=== PATIENT | female | born 1930 | race Caucasian/White ===

== ENCOUNTER 2016-12-13 15:58 | Inpatient (IN) | payer OTHER, MEDICARE ==
[~2016-12-13] VITALS: Ht 152.4 cm; Wt 69.1 kg
[~2016-12-13 15:58] MED LIST: AMITIZA8 MC1 PO; CITRATE OF MAG300 ML PO; EXELON1 EACH TOP; FUROSEMIDE20 M1 PO; GOLYTELY PACKE1 EACH PO; MIRTAZAPINE7.5 M1 PO; PROPRANOLOL HCL20 M1 PO; SENSIPAR30 M1 PO; VITAMIN D32000 UNIT PO
--- NOTE | 2016-12-13 16:05 | NUR ---
PT TO ED WITH SON AND DAUGHTER IN LAW FOR LETHARGY, SWOLLEN LEGS AND DARK STOOLS. PT WAS SENT IN BY DR VÁZQUEZ. PT HAS DEMENTIA. FAMILY STATES PT HAS BEEN MORE TIRED AND WEAK LATELY. PT HAS HOME HEALTH AID WHO STATED TODAY PT HAD DIARRHEA WITH ? BLOOD IN IT. PT DENIES ANY PAIN.
--- NOTE | 2016-12-13 16:39 | ED AMS/SEIZURE/WEAK/DIZZY ---
History of Present Illness General Chief Complaint: General Adult Stated Complaint: SENT IN BY MD VÁZQUEZ FOR SWOLLEN LEGS/DARK STOOLS Source: patient, family, old records Exam Limitations: dementia Vital Signs & Intake/Output Vital Signs & Intake/Output Vital Signs Date Time Temp Pulse Resp B/P Pulse O2 O2 Flow FiO2 Ox Delivery Rate 12/15 2219 97.6 134 22 132/69 92 Room Air 12/14 2135 99.1 12/14 2018 99.4 12/14 1452 98.5 69 20 113/66 95 Room Air 12/14 0800 Room Air 12/14 0640 97.8 67 20 124/70 94 ED Intake and Output 12/15 0000 12/14 1200 Intake Total 1000 450 Output Total 1150 1375 Balance -150 -925 Intake, IV 400 400 Intake, Oral 600 50 Number 0 Bowel Movements Output, Urine 1150 1375 Patient 152 lb Weight Allergies Coded Allergies: NO KNOWN ALLERGIES (10/29/12) Triage Note: PT TO ED WITH SON AND DAUGHTER IN LAW FOR LETHARGY, SWOLLEN LEGS AND DARK STOOLS. PT WAS SENT IN BY DR VÁZQUEZ. PT HAS DEMENTIA. FAMILY STATES PT HAS BEEN MORE TIRED AND WEAK LATELY. PT HAS HOME HEALTH AID WHO STATED TODAY PT HAD DIARRHEA WITH ? BLOOD IN IT. PT DENIES ANY PAIN. Triage Nurses Notes Reviewed? yes Onset: Gradual Duration: week(s): (2.5), constant Timing: recent history Injury Environment: home Severity: moderate Severity Numbers: 8 No Modifying Factors: none Associated Symptoms: WEAKNESS, ANOREXIA HPI: 85 Year old female history of dementia hypertension presents brought in with her family whom she lives with states over the past 2-1/2 weeks she's had progressively worsening lethargy and weakness, shortness of breath and bilateral leg swelling. Family states that she was seen by her primary care physician earlier this week at which time she had outpatient blood work and urinalysis performed. They state that there was no urinary tract infection however white blood cell count was elevated. The patient was recently adjusted to take Lasix 10 mg once a day every day. The patient has a history of dementia and offers no complaints on arrival. The family states that today and aide while changing her noted that her stool was dark. She was recently started on iron. There's been no nausea or vomiting however family reports poor appetite and malodorous urine (HANROSALVA COLE) Reconcile Medications Cholecalciferol (Vitamin D3) (Vitamin D3) 2,000 UNIT CAPSULE 1 CAP PO DAILY SUPPLEMENT (Reported) Cinacalcet HCl (Sensipar) 30 MG TABLET 1 TAB PO DAILY THYROID (Reported) Ferrous Sulfate (IRON) 325 MG (65 MG IRON) TABLET 1 TAB PO TID SUPPLEMENT ( Reported) Furosemide 20 MG TABLET 0.5 TAB PO DAILY DIURETIC (Reported) [facility] ([place] Simplus Solution) 105 ML SOLUTION 1 DROP OS BID LEFT EYE (Reported) Lubiprostone (Amitiza) 24 MCG CAPSULE 1 CAP PO BID CONSTIPATION (Reported) Rivastigmine (Exelon) 4.6 MG/24 HOUR PATCH.TD24 1 PAT TOP DAILY Dementia ( Reported) Tobramycin/Dexamethasone (Tobradex Eye Ointment) 0.3 %-0.1 % OINT...G. 1 LUCINDA OS BID LEFT EYE (Reported) (TAMARA MAYA,STEVE Paniagua) Past History Travel History Traveled to [place] past 21 day No Medical History Any Pertinent Medical History? see below for history Neurological: Alzheimer's disease, dementia EENT: NONE Cardiovascular: hypertension, hyperlipidemia Respiratory: NONE Gastrointestinal: diverticulosis Hepatic: NONE Renal: NONE Musculoskeletal: NONE Psychiatric: NONE Endocrine: NONE Blood Disorders: ITP NIGHT SHIFT/Reproductive: NONE Surgical History Surgical History: non-contributory, splenectomy Psychosocial History Who do you live with Son What is your primary language Uruguayan Tobacco Use: Quit >30 days ago ETOH Use: denies use Illicit Drug Use: denies illicit drug use Family History Hx Contributory? No (ROSALVA BENSON) Review of Systems Review of Systems Constitutional: Reports: see HPI. All Other Systems: Reviewed and Negative Comments Review of systems: See HPI, All other systems negative. Constitutional, no chills no fever, malaise HEENT: No visual changes no sore throat no congestion Cardiovascular: No chest pain , no palpitation , no orthopnea ankle swelling Skin, no rashes, no change in skin Respiratory: No dyspnea no cough no sputum no hemoptysis GI: No nausea no vomiting, no diarrhea : No dysuria No hematuria, no frequency Muscle skeletal: No joint pain, no joint swelling, no back pain, no neck pain, Neurologic: No numbness no headache Psych: No stress Heme/endocrine: No bruising no bleeding Immunology: No lymphadenopathy (ROSALVA BENSON) Physical Exam Physical Exam General Appearance: well developed/nourished, alert, awake Comments: Well-developed well-nourished person in no acute distress HEENT: Normal EENT exam; PERRL, EOMI, HEAD is atraumatic. moist mucous membranes. Neck: Supple, normal range of motion Back: Nontender, Full range of motion Cardiovascular: Regular rate and rhythms no murmurs rubs Respiratory: No respiratory distress. Patient speaking in full complete sentences. Breath sounds clear to auscultation bilaterally: NO W/R/R Abdomen: Soft, nontender nondistended, no appreciable organomegaly. Normal bowel sounds. No rebound/guarding Rectal: Nontender. Black stool, Heme negative stool. No mass/hemorrhoid, no fissure. Extremity: 3+ pitting b/l le edema, full range of motion of extremities Neuro: Alert oriented x0 BASELINE, motor sensory normal, There were no obvious focal neurologic abnormalities. Skin: No appreciable rash on exposed skin, skin is warm and dry. Psych: Mood and affect is normal, memory and judgment is normal. Core Measures ACS in differential dx? Yes CVA/TIA Diagnosis: No Severe Sepsis Present: No Septic Shock Present: No (ROSALVA BENSON) Progress Differential Diagnosis: arrythmia, anemia, CVA/stroke, dehydration, electrolyte imbalance, GI bleed, hypoglycemia, pneumonia, sepsis, UTI/pyelo, MALIGNANCY Plan of Care: Orders Procedure Date/time Status Device(s) 12/[address] HEAD W&WO IV CONTRAST 12/[address] ABD & PELVIS W/ & W/O IV CO 12/15 UNK Active Suazo, Insertion/Removal/Asses 12/14 195 Active Skin/Pressure Ulcer Assess (Sk 12/14 193 Active Suazo, Insertion/Removal/Asses 12/14 1900 Active Current Medications Sig/Brittney Start time Last Medication Dose Stop Time Status Admin Ramelteon 8 MG ONCE ONE 12/14 2100 CAN (Rozerem) 12/14 210 Ferrous Sulfate 325 MG TID 12/14 1000 AC (Feosol) Polyethylene Glycol 17 GM DAILY PRN 12/14 0115 AC (Miralax) Acetaminophen 325 MG Q6P PRN 12/13 2330 AC (Tylenol) Ibuprofen 400 MG Q6P PRN 12/13 2330 AC (Motrin) Laboratory Tests 12/14/16 0614: Anion Gap 10, Estimated GFR > 60, BUN/Creatinine Ratio 17.1, CBC w Diff NO MAN DIFF REQ, RBC 3.77 L, MCV 88.0, MCH 28.7, RDW 15.8 H, MPV 9.2, Gran % 81.1 H, Lymphocytes % 11.3 L, Monocytes % 7.1, Eosinophils % 0.4, Basophils % 0.1, Absolute Granulocytes 16.8 H, Absolute Lymphocytes 2.3, Absolute Monocytes 1.5 H, Absolute Eosinophils 0.1, Absolute Basophils 0, PUBS MCHC 32.7 L Labs ordered old records reviewed patient denies any complaints at this time case discussed with Dr. MOCTEZUMA Discussed with the patient's family at leave her x-ray findings need for CAT scan and lab results and need for admission which they're in agreement with discussed with Dr. Snell covering for Dr. VÁZQUEZ WILL ADMIT (OLVIN GREEN,ROSALVA) Diagnostic Imaging: Viewed by Me: Radiology Read. Discussed w/RAD: Radiology Read. Radiology Impression: PATIENT: REID MCCAIN PRESENT AGE: 85 PATIENT ACCOUNT NO: [id number] : 32 LOCATION: [facility] ORDERING PHYSICIAN: ROSALVA GREEN SERVICE DATE: 12/13/16 EXAM TYPE: RAD - XRY- PORTABLE CHEST XRAY EXAMINATION: XR PORTABLE CHEST CLINICAL INFORMATION: Dyspnea , leg swelling. COMPARISON: Chest radiograph 10/17/2009 and 10/28/2011. TECHNIQUE: Portable portable AP 80 degrees upright view of the chest was obtained. FINDINGS : A left hilar mass is identified with patchy opacity in the left upper lobe. Increased reticular markings are seen at the periphery of the right upper lobe worse from prior. Chronic increased reticular markings are seen bilaterally. The heart is not enlarged. No acute osseous abnormalities are seen. IMPRESSION: Left hilar mass with left upper lobe opacity. Recommend CT chest with contrast for further evaluation to assess for underlying neoplasm. Differential diagnosis could include superimposed pneumonia. Additional increased interstitial markings are chronic with slight increase in subpleural markings in the right upper lobe since prior. This critical result was discussed with Rosalva Gibbs by telephone at 6:30 PM on 12/13/2016 and it was ascertained that the content and urgency of the report was understood at the time of direct communication. DICTATED BY: MARCOS JOYCE MD DATE/TIME DICTATED:12/13/161825 MANAGEMENT PROFESSIONALS:[employer] DATE/ TIME TRANSCRIBED:12/13/161825 CONFIDENTIAL, DO NOT COPY WITHOUT APPROPRIATE AUTHORIZATION. <Electronically signed in Other Vendor System> SIGNED BY: MARCOS JOYCE MD 12/13/161835, PATIENT: REID MCCAIN PRESENT AGE: 85 PATIENT ACCOUNT NO: [id number] : 32 LOCATION: [facility] ORDERING PHYSICIAN: ROSALVA GREEN SERVICE DATE: 12/13/16 EXAM TYPE: CAT - CT CHEST W IV CONTRAST EXAMINATION: CT CHEST WITH CONTRAST CLINICAL INFORMATION: Left lung mass. Evaluate for malignancy. COMPARISON: Portable chest x-ray 10/28/2011 and 12/13/2016. TECHNIQUE: Multidetector volumetric CT imaging of the chest was obtained after the administration of 94 mL of Optiray 320 intravenous contrast without immediate adverse reactions. Axial MIP volume rendering provided. Sagittal and coronal reformatted images were obtained. DLP: 145 mGy-cm FINDINGS: RESEARCH PHYSICIST: Seater Assembler views of the chest demonstrate a left suprahilar mass. LUNGS: Evaluation of the lung parenchyma is notable for a large left suprahilar mass with contiguous extension and invasion of the mediastinum. This mass measures approximately 5.9 x 6.7 x 5.8 cm in transverse, AP and craniocaudal dimensions respectively (series 2, image 19). This mass exerts local mass effect upon the adjacent vasculature, notably the main pulmonary artery as well as the left pulmonary artery, without significant narrowing. There are subcentimeter nodular opacities within the bilateral lung bases, which could reflect impacted bronchioles versus subcentimeter pulmonary nodules. For instance, there is a 6 mm pulmonary nodule within the right lower lobe (series 602, image 60). A 6 mm nodule is also visualized along the periphery of the right upper lobe. A tubular density within the right lower lobe appears to correspond to a fluid or soft tissue filled bronchiole within the right lung base. There are mild bilateral centrilobular emphysematous changes, notably within the bilateral upper lobes. Also noted is subpleural reticular thickening, notably along the periphery of the bilateral upper lobes as well as the bilateral lower lobes. The central trachea appears to be grossly patent. MEDIASTINUM: As noted above, there is invasion of the mediastinum by a large left suprahilar mass. There is a prominent right hilar lymph node visualized measuring approximately 1.3 x 1.2 cm (series 2, image 19). There is an enhancing 0.9 x 1.0 cm subpleural nodule abutting the middle mediastinum (series 2, image 23). The heart is normal in size, without significant pericardial effusion. PLEURA: No pleural effusions or pneumothoraces. AXILLA: No significant axillary adenopathy. UPPER ABDOMEN: Evaluation of the upper abdomen is notable for ill- defined regions of heterogeneity within the hepatic dome as well as the left hepatic lobe, with a rounded ill-defined hypoattenuating lesion identified within the hepatic dome measuring 3.8 x 4.5 cm (series 2, image 42). There is diffuse thickening of the left adrenal gland. OSSEOUS STRUCTURES: No acute osseous abnormality. Kyphosis of the thoracic spine. Mild multilevel degenerative changes of the thoracic spine. IMPRESSION: 1. A large left suprahilar mass with associated invasion of the mediastinum. This mass, which measures approximately 5.9 x 6.7 x 5.8 cm in transverse, AP and craniocaudal dimensions respectively, exerts local mass effect upon the adjacent vasculature, notably the main pulmonary artery as well as the left pulmonary artery, without significant narrowing of the caliber of these vessels. 2. Multiple nodular opacities along the periphery of the right upper and right lower lobes, visualized measuring up to 6 mm within the right lower lobe. There is a tubular structure within the right lower lobe which could reflect fluid versus soft tissue within a dilated bronchiole. These pulmonary nodules are indeterminate but could reflect metastasis to the contralateral lung. 3. Diffuse heterogeneity within the left hepatic lobe as well as the hepatic dome, with an ill-defined rounded lesion visualized within the hepatic dome measuring approximately 3.8 x 4.5 cm. This is suspicious for liver metastasis. A nonemergent multiphase contrast-enhanced CT or MRI of the abdomen may be obtained for further evaluation. 4. Diffuse thickening of the left adrenal gland. This finding is indeterminate. Left adrenal gland metastasis cannot be excluded. This can also be further evaluated on CT or MRI of the abdomen. DICTATED BY: JUSTA CORBETT MD DATE/TIME DICTATED:12/13/162038 MANAGEMENT PROFESSIONALS:[employer]PH[employer] DATE/TIME TRANSCRIBED:12/13/162038 CONFIDENTIAL, DO NOT COPY WITHOUT APPROPRIATE AUTHORIZATION. <Electronically signed in Other Vendor System> SIGNED BY: JUSTA CORBETT MD 12/13/162114 Initial ED EKG: NORMAL SINUS AT 70, NONSPECIFIC st SEGMENT CHANGES NORMAL AXIS Prior EKG: unchanged (12/14/2015) (ROSALVA BENSON) Departure Departure Time of Disposition: 1952 Disposition: STILL A PATIENT Condition: Stable Clinical Impression Primary Impression: Lung mass Secondary Impressions: Hypocalcemia, Leg edema, Leukocytosis, Weakness Referrals: BEBE MAYA,LANETTE Dos Santos (PCP/Family) Departure Forms: Customer Survey General Discharge Information Admission Note Spoke With: DEE DEE MAYA,MARIELA Alaniz Documentation of Exam: Documentation of any treatments & extenuating circumstances including Concerns Regarding Discharge (functional status, medication knowledge or non-compliance, living conditions, etc.) that warrant an admission rather than observation: Trend labs IV diuresis, possible oncology, cardiology consult premature discharge to be medically harmful (ROSALVA BENSON) PA/MAGISTRATE Co-Sign Statement Statement: ED Attending supervision documentation- [] I saw and evaluated the patient. I have also reviewed all the pertinent lab results and diagnostic results. I agree with the findings and the plan of care as documented in the PA's/MAGISTRATE's documentation. [x] I have reviewed the ED Record and agree with the PA's/MAGISTRATE's documentation. [] Additions or exceptions (if any) to the PAs/MAGISTRATE's note and plan are summarized below: [] (TAMARA MAYA,STEVE Paniagua)
[2016-12-13] MEDS ORDERED: AMITIZA24 MC1 PO (16:49)
[2016-12-13] MEDS ORDERED: [UNRECOGNIZED DRUG - SUPPLY] OS (16:50)
[2016-12-13] MEDS ORDERED: TOBRADEX EYE O3.5 GM OS (16:51)
[2016-12-13] MEDS ORDERED: IRON325 M3 PO (16:52)
--- NOTE | 2016-12-13 17:25 | NUR ---
ACCOMPANIED NORMA BAH IN ROOM FOR GUIA EXAMINATION. PER NORMA BLACKWELL, [facility] NEGATIVE
--- NOTE | 2016-12-13 17:50 | NUR ---
IV ESTABLISHED. LABS DRAWN AND SENT (BLUE, SST X 2, LAV, SINHA, PINK). FAMILY AT BEDSIDE. PT CONFUSED, ALERT AND ORIENTED TO PERSON ONLY.
[2016-12-13 18:01] LABS: ABSOLUTE BASOPHIL COUNT 0 /CUMM (0.0-0.2); ABSOLUTE EOSINOPHIL COUNT 0.1 /CUMM (0.0-0.7); ABSOLUTE GRANULOCYTE CT 15.6 /CUMM (1.4-6.5); ABSOLUTE LYMPH COUNT 1.8 /CUMM (1.2-3.4); ABSOLUTE MONOCYTE COUNT 0.9 /CUMM (0.10-0.60); BASOPHIL % 0 % (0.0-2.0); EOSINOPHIL % 0.5 % (0-5); GRANULOCYTE % 84.6 % (42.2-75.2); HEMATOCRIT 32.5 % (37-47); MEAN CORPUSCULAR HGB 28.4 PG (27.0-31.0); MEAN CORPUSCULAR HGB CONC 32.5 G/DL (33.0-37.0); MEAN CORPUSCULAR VOLUME 87.6 FL (81.0-99.0); MEAN PLATELET VOLUME 8.6 FL (7.4-10.4); PLATELET COUNT 472 /CUMM (130-400); RBC DISTRIBUTION WIDTH 15.9 % (11.5-14.5); RED BLOOD CELL CT 3.71 /CUMM (4.20-5.40); WHITE BLOOD CELL COUNT 18.5 /CUMM (4.8-10.8)
--- NOTE | 2016-12-13 18:13 | NUR ---
PT BLOOD SENT TO THE LAB 2 [facility]
--- NOTE | 2016-12-13 18:36 | RADIOLOGY REPORT ---
EXAMINATION: XR PORTABLE CHEST CLINICAL INFORMATION: Dyspnea, leg swelling. COMPARISON: Chest radiograph 10/17/2009 and 10/28/2011. TECHNIQUE: Portable portable AP 80 degrees upright view of the chest was obtained. FINDINGS: A left hilar mass is identified with patchy opacity in the left upper lobe. Increased reticular markings are seen at the periphery of the right upper lobe worse from prior. Chronic increased reticular markings are seen bilaterally. The heart is not enlarged. No acute osseous abnormalities are seen. IMPRESSION: Left hilar mass with left upper lobe opacity. Recommend CT chest with contrast for further evaluation to assess for underlying neoplasm. Differential diagnosis could include superimposed pneumonia. Additional increased interstitial markings are chronic with slight increase in subpleural markings in the right upper lobe since prior. This critical result was discussed with oTd Gibbs by telephone at 6:30 PM on 12/13/2016 and it was ascertained that the content and urgency of the report was understood at the time of direct communication.
--- NOTE | 2016-12-13 19:47 | NUR ---
BLOOD WORK (CARRIZALES AND BLUE) REDRAWN AND SENT TO LAB. 1ST SET OF BLOOD CULTURES DRAWN AND SENT TO LAB
[2016-12-13 19:56] LABS: PT 13.1 SEC (9.4-12.5)
--- NOTE | 2016-12-13 20:00 | NUR ---
2ND SET OF BLOOD CULTURES DRAWN AND SENT TO LAB
--- NOTE | 2016-12-13 20:05 | NUR ---
PT TO CT VIA STRETCHER
--- NOTE | 2016-12-13 20:21 | NUR ---
pt to room 210 bed 1
--- NOTE | 2016-12-13 20:30 | NUR ---
INDWELLING CATH PLACED WITH YUAN HODGSON IN ROOM. PT TOLERATED WELL. 300ML CLEAR YELLOW URINE OUT. TRU CARE PROVIDED.
--- NOTE | 2016-12-13 20:30 | NUR ---
PT MEDICATED WITH LASIX 20MG IVP
--- NOTE | 2016-12-13 21:14 | NUR ---
ATTEMPTED TO CALL REPORT TO FLOOR
--- NOTE | 2016-12-13 21:15 | CT SCAN REPORT ---
EXAMINATION: CT CHEST WITH CONTRAST CLINICAL INFORMATION: Left lung mass. Evaluate for malignancy. COMPARISON: Portable chest x-ray 10/28/2011 and 12/13/2016. TECHNIQUE: Multidetector volumetric CT imaging of the chest was obtained after the administration of 94 mL of Optiray 320 intravenous contrast without immediate adverse reactions. Axial MIP volume rendering provided. Sagittal and coronal reformatted images were obtained. DLP: 145 mGy-cm FINDINGS: CHIEF OF SERVICE: Photovoltaic Testing Technician views of the chest demonstrate a left suprahilar mass. LUNGS: Evaluation of the lung parenchyma is notable for a large left suprahilar mass with contiguous extension and invasion of the mediastinum. This mass measures approximately 5.9 x 6.7 x 5.8 cm in transverse, AP and craniocaudal dimensions respectively (series 2, image 19). This mass exerts local mass effect upon the adjacent vasculature, notably the main pulmonary artery as well as the left pulmonary artery, without significant narrowing. There are subcentimeter nodular opacities within the bilateral lung bases, which could reflect impacted bronchioles versus subcentimeter pulmonary nodules. For instance, there is a 6 mm pulmonary nodule within the right lower lobe (series 602, image 60). A 6 mm nodule is also visualized along the periphery of the right upper lobe. A tubular density within the right lower lobe appears to correspond to a fluid or soft tissue filled bronchiole within the right lung base. There are mild bilateral centrilobular emphysematous changes, notably within the bilateral upper lobes. Also noted is subpleural reticular thickening, notably along the periphery of the bilateral upper lobes as well as the bilateral lower lobes. The central trachea appears to be grossly patent. MEDIASTINUM: As noted above, there is invasion of the mediastinum by a large left suprahilar mass. There is a prominent right hilar lymph node visualized measuring approximately 1.3 x 1.2 cm (series 2, image 19). There is an enhancing 0.9 x 1.0 cm subpleural nodule abutting the middle mediastinum (series 2, image 23). The heart is normal in size, without significant pericardial effusion. PLEURA: No pleural effusions or pneumothoraces. AXILLA: No significant axillary adenopathy. UPPER ABDOMEN: Evaluation of the upper abdomen is notable for ill-defined regions of heterogeneity within the hepatic dome as well as the left hepatic lobe, with a rounded ill-defined hypoattenuating lesion identified within the hepatic dome measuring 3.8 x 4.5 cm (series 2, image 42). There is diffuse thickening of the left adrenal gland. OSSEOUS STRUCTURES: No acute osseous abnormality. Kyphosis of the thoracic spine. Mild multilevel degenerative changes of the thoracic spine. IMPRESSION: 1. A large left suprahilar mass with associated invasion of the mediastinum. This mass, which measures approximately 5.9 x 6.7 x 5.8 cm in transverse, AP and craniocaudal dimensions respectively, exerts local mass effect upon the adjacent vasculature, notably the main pulmonary artery as well as the left pulmonary artery, without significant narrowing of the caliber of these vessels. 2. Multiple nodular opacities along the periphery of the right upper and right lower lobes, visualized measuring up to 6 mm within the right lower lobe. There is a tubular structure within the right lower lobe which could reflect fluid versus soft tissue within a dilated bronchiole. These pulmonary nodules are indeterminate but could reflect metastasis to the contralateral lung. 3. Diffuse heterogeneity within the left hepatic lobe as well as the hepatic dome, with an ill-defined rounded lesion visualized within the hepatic dome measuring approximately 3.8 x 4.5 cm. This is suspicious for liver metastasis. A nonemergent multiphase contrast-enhanced CT or MRI of the abdomen may be obtained for further evaluation. 4. Diffuse thickening of the left adrenal gland. This finding is indeterminate. Left adrenal gland metastasis cannot be excluded. This can also be further evaluated on CT or MRI of the abdomen.
--- NOTE | 2016-12-13 21:31 | NUR ---
REPORT CALLED TO BORIS OWENS. DISTRIBUTION CALLED FOR TRANSPORT
--- NOTE | 2016-12-13 21:53 | NUR ---
GONCALVES EMPTIED OF 650ML CLEAR LIGHT YELLOW URINE. PT ANXIOUS AND AGITATED AT THIS TIME, HOUSE STAFF PRESENT AND AWARE. FAMILY ALSO PRESENT IN ATTEMPTS TO DEESCALATE. TRANSPORTED TO FLOOR WITH HUMERA SOLIS X2 AND FAMILY.
--- NOTE | 2016-12-13 22:35 | History & Physical ---
PAUL MAYA,[facility] 12/13/16 2234: General Information and HPI MD Statement: I have seen and personally examined REID MCCAIN and documented this H&P. The patient is a 85 year old F who presented with a patient stated chief complaint of lower extremity swelling. Source of Information: family Exam Limitations: dementia History of Present Illness: This is a 85-year-old is a 85-year-old lady with a past medical history of hypertension, dementia, idiopathic thrombocytopenia purpura status post splenectomy, is sent to [place] ED by Dr. Lazaro for evaluation of increasing bilateral lower extremity edema. At baseline, patient has dementia and appeared disoriented during examination, therefore most of the history was obtained from family members (sons and in laws ). Family members report that patient was recently started on furosemide 10 mg (about 2 weeks ago) for her lower extremity swelling, by report that the swelling has progressively worsened. Early in the morning today, patient was reported to have had an episode for bowel movement with dark black stools. Patient was just started iron supplementation about 3 days ago and is normally has a bowel movement every other day. Patient also intermittently complains of mild abdominal pain, but does not experience any nausea, vomiting or diarrhea. Family members also report that the patient has had a decreased oral intake in the past 2 months, experienced a weight loss of about 10 pounds in the past 2 months, and has been found to be more demented with nightmares and possibly hallucinations (feelings of people are going to break into her house). Patient is not reported to have had any recent fevers, cough, infection, sick contacts, chest pain or palpitation, shortness of breath, dizziness, focal call neurological deficit, muscle or joint pains, or dysuria Allergies/Medications Allergies: Coded Allergies: NO KNOWN ALLERGIES (10/29/12) Past History Travel History Traveled to [place] past 21 day No Medical History Neurological: Alzheimer's disease, dementia EENT: NONE Cardiovascular: hypertension, hyperlipidemia Respiratory: NONE Gastrointestinal: diverticulosis Hepatic: NONE Renal: NONE Musculoskeletal: NONE Psychiatric: NONE Endocrine: NONE Blood Disorders: ITP 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 Exam & Diagnostic Data Last 24 Hrs of Vital Signs/I&O Vital Signs Date Time Temp Pulse Resp B/P Pulse O2 O2 Flow FiO2 Ox Delivery Rate 12/133 98.8 66 18 113/56 98 12/13 1950 Room Air 12/13 1600 97.8 71 20 104/70 96 Room Air Intake & Output 12/14 0800 12/14 0000 12/13 1600 Intake Total Output Total 650 Balance -650 Output, Urine 650 Patient 69.059 kg Weight Physical Exam General Appearance Alert, oriented to place. appears confused, cachetic Skin No Significant Lesion HEENT Atraumatic, PERRLA, EOMI Neck Supple, No JVD, No thryomegaly Lymphatic Cervical nl Cardiovascular Regular Rate, Normal S1, Normal S2 Lungs Clear to Auscultation, Normal Air Movement Abdomen Normal Bowel Sounds, Soft Neurological Normal Speech, Sensation Intact Extremities pitting edema b/l LE extremities Vascular Pulses Symmetrical Assessment/Plan Assessment: This is a 85-year-old lady with a significant history of dementia, hypertension, MVP, is sent in by her primary care physician for evaluation of increased bilateral lower extremity edema and dark stool. Patient was recently started on furosemide 10 mg lower extremity edema which seems to be worsening despite current intervention. Regarding dark black stools, this seems to have started 3 days after initiation of iron therapy. Assessment and plan #Lower extremity edema Patient does not have history of CHF or chronic venous insufficiency which account for the edema. The bilateral extremity edema possibly be from malignancy? Plan Continue furosemide 10 mg daily #Abnormal CT findings of lung mass Large left suprahilar mass with associated to invasion of the mediastinum. Large nodular opacity along the periphery of the right upper and right lower lobes. The findings a significant illness be contributory finding is suggestive of metastasis from the primary left lung mass. Is also diffuse heterogeneously of the liver and thickening of the left adrenal gland which also suggests metastasis. Patient has an extensive prior history of smoking and an extensive family history of lung malignancy. This findings were discussed with family members (Aneesh and Antony). Plan Will obtain CT head and CT abdomen and pelvis to assess possible metastases to other parts. Family meeting regarding goals of care Consider oncology consult after consultation with family tomorrow morning #Leukocytosis Patient is afebrile, urinalysis is unremarkable for UTI, chest x-ray unremarkable for any acute infection, therefore leukocytosis is less likely to be of infectious etiology. Plan Will trend CBC tomorrow morning #Hyponatremia (mild) Most likely hypovolemic hyponatremia. Plan Normal saline gentle hydration #Hypokalemia Most likely this in the setting of furosemide use. Status post 10 mEq replenishment Plan Will trend BEP #Acute delirium Patient became confused with agitation at the ED and on general med floor with attempts to pull IV lines. Soft upper extremity restraint was instituted and patient received IM Zyprexa to milligram once due to severe agitation. Plan Will avoid any delirium triggers Will assess further need for upper extremity restraints Encouraged family members to stay with patient orientation Will avoid delirium triggers such as constipation (aggressive bowel regimen) #History of dementia Continue Exelon patches As Ranked By This Provider Problem List: 1. Acute delirium 2. Leg edema 3. Leukocytosis 4. Lung mass Core Measures/Miscellaneous Acute Coronary Syndrome ACS Diagnosis: No Cerebrovascular Accident CVA/TIA Diagnosis: No Congestive Heart Failure CHF Diagnosis: No Venous Thromboembolism VTE Risk Factors: Age > 40 No [facility] VTE prophylaxis d/t: No contraindications No VTE Pharm Prophylaxis d/t: No contraindications VTE Diagnosis: No VTE Type: NONE VTE Confirmed by (Test): NONE Severe Sepsis Severe Sepsis Present: No Septic Shock Septic Shock Present: No Miscellaneous Documentation Attending Case Discussed With: DEE DEE MAYA,MARIELA Alaniz Primary Care Physician: LANETTE SPENCE MD Patient sees these Specialists . Level of Patient Care: General Medicine IHM BRAYAN MAYA 12/13/16 0022: General Information and HPI Allergies/Medications Home Med list Cholecalciferol (Vitamin D3) (Vitamin D3) 2,000 UNIT CAPSULE 1 CAP PO DAILY SUPPLEMENT (Reported) Cinacalcet HCl (Sensipar) 30 MG TABLET 1 TAB PO DAILY THYROID (Reported) Ferrous Sulfate (IRON) 325 MG (65 MG IRON) TABLET 1 TAB PO TID SUPPLEMENT ( Reported) Furosemide 20 MG TABLET 0.5 TAB PO DAILY DIURETIC (Reported) Hard Data Control Clerk Supervisor (Ironside Simplus Solution) 105 ML SOLUTION 1 DROP OS BID LEFT EYE (Reported) Lubiprostone (Amitiza) 24 MCG CAPSULE 1 CAP PO BID CONSTIPATION (Reported) Rivastigmine (Exelon) 4.6 MG/24 HOUR PATCH.TD24 1 PAT TOP DAILY Dementia ( Reported) Tobramycin/Dexamethasone (Tobradex Eye Ointment) 0.3 %-0.1 % OINT...G. 1 LUCINDA OS BID LEFT EYE (Reported) Resident Review Statement Resident Statement: examined this patient, discussed with clinical nursing intern, agreed with clinical nursing intern, discussed with family, reviewed EMR data (avail), discussed with nursing , reviewed images, amended to note Other Findings: 85 yo female with pmh of Alzheimer's dementia, HTN, MVP, ITP s/p splenectomy was sent by Dr. Lazaro due to increasing bilateral LE edema and dark stool. Most of information was from family due to clinical condition. She was recently seen by her PCP due to LE edema, and po lasix 10mg was started from 12/02/16. However, her leg swelling got worse up to knees. Also her [id number] and health aid witnessed dark/black stool today without brigt red per recturm. She was started on iron supplementation few days ago. She has had Alzheimer's disease for 8 years, and she's living with her son, Antony. She has visiting nurses and walks independently. Lately, she required more assistance due to increasing generalized weakness, and her sun downing/hallucinations got worse. Her appetite /oral intake was decreased about 2 months, and she lost 10 lbs within 2 months. She intermittently c/o mid abdomen pain to family without nausea/vomiting. She is contipated having BM every other day. She has problems with chewing food. She is a former smoker (35 ppd, quit 30 years ago). Significant family hx: brother had lung cancer/dementia, sister: dementia V/S: 98.8F MO 66 RR 18 BP 113/56 98% on RA, alert, not oriented, anxious/ agitated not able to follow commands, cachexic, PERRLA, pale conjunctiva, no cervical LAD, regular rate, normal S1/S2, no murmurs, clear lung sounds, soft, non-tender abdomen, bilateral LE pitting edema x 2, normal pulses. Labs: WBC 18.5, Hb/hct 10.6/32.5, Plt 472, INR 1.25, Na 134, K 3.4, BUN/Cr 14/ 0.7, AST/ALT 45/39, proBNP 823, UA unremarkable EKG: NSR, normal axis, MO 176, QTc 442, poor R wave progression, nonspecific T flattening V3-4 CT chest: 1. A large left suprahilar mass with associated invasion of the mediastinum. This mass, which measures approximately 5.9 x 6.7 x 5.8 cm, 2. A large left suprahilar mass with associated invasion of the mediastinum. This mass, which measures approximately 5.9 x 6.7 x 5.8 cm 3. ill-defined rounded lesion visualized within the hepatic dome measuring approximately 3.8 x 4.5 cm, 4. Diffuse thickening of the left adrenal gland. This finding is indeterminate. Left adrenal gland metastasis cannot be excluded. 1. Lt. suprahilar mass with possible metastasis: new findings from last CXR in 2011. Findings were explained to family members (including Antony & Aneesh). After discussed with Dr. Funez, will get CT head & CT abdomen/pelvis to evaluate possible metastasis. Consider oncology consult after family meeting regarding future management. 2. Normocytic anemia with dark stool: in the setting of iron supplement, check guiac stool, follow CBC in am, monitor signs of bleeding. 3. Worsening bilateral LE edema: IV lasix 20mg was given in ED, c/w po lasix 10mg as home dose for now, consider lower ext doppler with malignancy. 4. Acute delirium with underlying dementia: IM zyprexa was given once due to severe agitation. Medical restraint if needed. Pain control, keep orientation with family members, avoid constipation, no evidence of UTI. check CT head. DVT ppx: SC lovenox, full code (pt doesn't have an advance directive, family wants to keep full code at this time). MARIELA FUNEZ MD 12/14/16 2629: Attending MD Review Statement Attending Statement Attending MD Statement: examined this patient, discuss w/resident/PA/GROUND WIRER, agreed w/resident/PA/GROUND WIRER, discussed with family, reviewed EMR data (avail), reviewed images, amended to note Attending Assessment/Plan: Problems: -Lower extremity edema -Lung mass on chest x-ray and CT scan with possible hepatic metastases -Associated anorexia and weight loss -Leukocytosis of unknown etiology -Electrolyte abnormalities -Dementia with acute delirium Plan: -Admit general medicine -IV fluids correct electrolyte abnormalities -CT head, CT abdomen and pelvis with and without contrast -Continue all maintenance medications -Would consider DNR/DNI status
--- NOTE | 2016-12-14 04:09 | NUR ---
LATE ENTRY: PT ARRIVED TO FLOOR @ 22;40 VIA STRTCHER WITH DISTRIBUTION STAFF. PT MOVED TO BED WITH ASSIST x3. FAMILY AT BEDSIDE FOR SUPPORT. PT A/OX1, COMBATIVE AND CONFUSED. DURING ASSESSMENT PT BECAME INCREASINGLY AGITATED AND STARTED TO PULL HER IV LINE AND HER GONCALVES. #[id number] NOTIFIED. BUE SOFT RESTRAINTS AND ZYPREXA IM ORDERED. BP 113/56 P 66 T 98.8 98% RA. WILL CONTINUE TO MONITOR
--- NOTE | 2016-12-14 04:13 | NUR ---
0257 PT TRYING TO GET UP FROM BED OVER THE BEDRAILS. SHE IS EXTREMLY CONFUS . ANGY ORDERED.
[2016-12-14 06:40] VITALS: BP 124/70
[2016-12-14 09:08] LABS: ABSOLUTE BASOPHIL COUNT 0 /CUMM (0.0-0.2); ABSOLUTE EOSINOPHIL COUNT 0.1 /CUMM (0.0-0.7); ABSOLUTE GRANULOCYTE CT 16.8 /CUMM (1.4-6.5); ABSOLUTE LYMPH COUNT 2.3 /CUMM (1.2-3.4); ABSOLUTE MONOCYTE COUNT 1.5 /CUMM (0.10-0.60); BASOPHIL % 0.1 % (0.0-2.0); EOSINOPHIL % 0.4 % (0-5); HEMATOCRIT 33.2 % (37-47); MEAN CORPUSCULAR HGB 28.7 PG (27.0-31.0); MEAN CORPUSCULAR HGB CONC 32.7 G/DL (33.0-37.0); MEAN PLATELET VOLUME 9.2 FL (7.4-10.4); PLATELET COUNT 490 /CUMM (130-400); RBC DISTRIBUTION WIDTH 15.8 % (11.5-14.5); RED BLOOD CELL CT 3.77 /CUMM (4.20-5.40); WHITE BLOOD CELL COUNT 20.7 /CUMM (4.8-10.8)
[2016-12-14 10:07] LABS: GRANULOCYTE % 81.1 % (42.2-75.2)
[2016-12-14 14:52] VITALS: BP 113/66
[2016-12-14 22:20] VITALS: BP 132/69
--- NOTE | 2016-12-15 08:14 | PN- Housestaff ---
Subjective Follow-up For: -Lower extremity edema -Lung mass on chest x-ray and CT scan with possible hepatic metastases Subjective: Patient is very confused, crying and screaming. She has baseline dementia and visual hallucination. The son at bedside reported constipation for 5 days and multiple hospital admission for chronic constipation. Patient were not able to have her breakfast becuase of difficulty swallowing. Patient has hardy catheter in place. Review of Systems Constitutional: Reports: see HPI. Objective Last 24 Hrs of Vital Signs/I&O Vital Signs Date Time Temp Pulse Resp B/P Pulse O2 O2 Flow FiO2 Ox Delivery Rate 12/15 2219 97.6 134 22 132/69 92 Room Air 12/14 2135 99.1 12/14 2018 99.4 12/14 1452 98.5 69 20 113/66 95 Room Air Intake & Output 12/15 1600 12/15 0800 12/15 0000 Intake Total 400 Output Total 700 Balance 400 -700 Intake, IV 400 Output, Urine 700 Physical Exam General Appearance: Alert, Mild Distress Skin: No Rashes, multiple bruses UE and LE HEENT: Atraumatic, PERRLA, EOMI, Mucous Membr. moist/pink Cardiovascular: Regular Rate, Normal S1, Normal S2, No Murmurs Lungs: Clear to Auscultation, Normal Air Movement Abdomen: Normal Bowel Sounds, Soft, No Tenderness Neurological: Strength at 5/5 X4 Ext, Normal Tone, Sensation Intact, Reflexes 2+ Extremities: No Clubbing, No Cyanosis, No Edema, Normal Pulses Assessment/Plan Assessment: This is a 85-year-old lady with a significant history of dementia, hypertension, MVP, is sent in by her primary care physician for evaluation of increased bilateral lower extremity edema and dark stool. Patient was admitted to general medical floor on 12/13/16 for evaluation. Assessment and plan #Metastatic disease -CT chest, abdomen and pelvis showed multiple nodules that's suggesting metastatic disease. IMPRESSION: Indeterminate 4.5 mm high density lesion in the periventricular white matter adjacent to the superolateral aspect of the right lateral ventricle. This lesion is high attenuation on the noncontrast study and does not appear to demonstrate enhancement; high density is suspected to be due to mineralization. This may be postinflammatory in etiology or alternatively represent a small cavernoma. A calcified solitary metastatic lesion is felt to be less likely. Otherwise, no enhancing parenchymal lesions identified. An MRI of the brain would be a more sensitive examination in order to assess for subtle intracranial metastases. CT abdomen and pelvis with and without contrast on 12/15/16 IMPRESSION: 1. Multiple large masses are seen in the liver and large left ovarian mass is seen. Findings are suspicious for metastatic disease in this patient with known history of primary lung cancer. 2. Reticular nodular opacities in the lung bases and left suprahilar mass are only partially included on this exam and are better evaluated on the recent CT scan of the chest from 12/13/2016. 3. No abdominal adenopathy or free fluid. 4. Other incidental findings include tiny gallstones within an otherwise unremarkable gallbladder, absent spleen, benign left adrenal mass, findings suggestive of chronic stercoral colitis, osteopenia and multilevel degenerative changes in the spine. CT chest 12/13/16 IMPRESSION: 1. A large left suprahilar mass with associated invasion of the mediastinum. This mass, which measures approximately 5.9 x 6.7 x 5.8 cm in transverse, AP and craniocaudal dimensions respectively, exerts local mass effect upon the adjacent vasculature, notably the main pulmonary artery as well as the left pulmonary artery, without significant narrowing of the caliber of these vessels. 2. Multiple nodular opacities along the periphery of the right upper and right lower lobes, visualized measuring up to 6 mm within the right lower lobe. There is a tubular structure within the right lower lobe which could reflect fluid versus soft tissue within a dilated bronchiole. These pulmonary nodules are indeterminate but could reflect metastasis to the contralateral lung. 3. Diffuse heterogeneity within the left hepatic lobe as well as the hepatic dome, with an ill-defined rounded lesion visualized within the hepatic dome measuring approximately 3.8 x 4.5 cm. This is suspicious for liver metastasis. A nonemergent multiphase contrast-enhanced CT or MRI of the abdomen may be obtained for further evaluation. 4. Diffuse thickening of the left adrenal gland. This finding is indeterminate. Left adrenal gland metastasis cannot be excluded. This can also be further evaluated on CT or MRI of the abdomen. Plan -Patient continued to be very confused with visual hallucination -Patient has difficulty swallowing, will keep nothing by mouth and order swallow evaluation -Hospice evaluation was obtained, patient wants hospice -Patient was transferred to hospice care Problem List: 1. Dementia 2. Metastasis Pain Ratin Pain Location: None Pain Goal: Pain 4 or less Pain Plan: Mild pain pathway Tomorrow's Labs & Rationales: None
--- NOTE | 2016-12-15 10:06 | NUR ---
NSG NOTE: PT LEFT FLOOR VIA STRETCHER FOR CT SCAN ACCOMPANIED BY DISTRIBUTION AND PATIENTS SON; PATIENT WAS MEDICATED WITH 0.5 IV ATIVAN PER LUMBER PILER OPERATOR #[id number] ORDER; PATIENT SEEMS MORE CALM AT THIS TIME; WILL CONT TO MONITOR PATIENTS RETURN
--- NOTE | 2016-12-15 11:54 | CT SCAN REPORT ---
EXAMINATION: CT ABDOMEN AND PELVIS WITHOUT AND WITH CONTRAST CLINICAL INFORMATION: Metastases secondary to primary lung malignancy. Generalized malaise. COMPARISON: CT scan of the chest dated 12/13/2016. CT scan of the abdomen and pelvis dated 05/02/2012. TECHNIQUE: Multidetector volumetric imaging was performed through the abdomen prior to IV contrast. The abdomen and pelvis were then reexamined after the administration of 95 mL Optiray 320 intravenous contrast. Sagittal and coronal reformatted images were obtained on the technologist's workstation. DLP: 465.30 mGy-cm FINDINGS: LUNG BASES: Again seen are prominent reticular nodular opacities in the lung bases bilaterally. Progressive dependent atelectatic changes also seen in the subpleural left lower lobe with slight elevation of the left hemidiaphragm. The known large left suprahilar mass is partially included on the field crop farmer view. LIVER, GALLBLADDER, AND BILIARY TREE: The liver is normal in size, shape, and attenuation. In segment 8, there is a 3.6 x 3.8 cm macrolobulated mass with peripheral rim enhancement and central hypoenhancement, new from the 2012 CT scan of the abdomen, suspicious for a metastatic deposit. A second large contour deforming segment 3 mass is seen, with identical imaging characteristics, measuring 4.4 x 5.0 cm. A third heterogeneously enhancing segment IVb mass is seen, measuring 5.8 x 5.5 cm. Findings are highly suspicious for metastatic disease. Mild central intrahepatic ductal dilatation is seen, likely related to mass effect by the large central masses. Common bile duct is only partially visualized and appears normal in caliber, measuring 0.6 cm in diameter. Tiny layering gallstones are seen within the gallbladder, which is otherwise unremarkable. PANCREAS: Unremarkable. SPLEEN: The spleen is not visualized, presumably related to prior splenectomy. ADRENAL GLANDS: Nodular enlargement of the left adrenal gland is again noted, unchanged dating back to 05/02/2012, most consistent with nodular hypertrophy or a small adrenal adenoma. KIDNEYS AND URETERS: The kidneys are normal in size, shape, and attenuation. There is a tiny 0.2 cm nonobstructing mid left renal calculus, not appreciated on the 2012 contrast-enhanced exam. No hydronephrosis or hydroureter seen. No perinephric stranding. BLADDER: Decompressed by a Suazo catheter. GASTROINTESTINAL TRACT: Gaseous distention of the colon is seen. There is large amount of fecal material distending the colon, which is diffusely mildly thick walled in appearance. Findings may be related to chronic stercoral colitis. Small bowel is decompressed. No free air or free fluid is seen. ABDOMINAL WALL: No significant hernia is appreciated. LYMPH NODES: No adenopathy in the abdomen or pelvis. No free fluid. VASCULAR: Slight ectasia of the distal descending thoracic aorta and upper abdominal aorta is seen. Moderate atherosclerotic calcifications of the aorta and branch vessels are seen. PELVIC VISCERA: Uterus mildly atrophic and otherwise unremarkable. Right ovary unremarkable. In the left adnexa, a large 5.1 x 4.0 cm heterogeneously enhancing mass is seen, new from 2011, suspicious for a Krukenberg tumor. OSSEOUS STRUCTURES: Osteopenia is seen with moderate degenerative disc disease at L3-L4 and L4-L5 and moderate facet arthropathy throughout the mid and lower lumbar spine. Mild convex left thoracolumbar curvature is seen, possibly positional. No suspicious bone findings seen. IMPRESSION: 1. Multiple large masses are seen in the liver and large left ovarian mass is seen. Findings are suspicious for metastatic disease in this patient with known history of primary lung cancer. 2. Reticular nodular opacities in the lung bases and left suprahilar mass are only partially included on this exam and are better evaluated on the recent CT scan of the chest from 12/13/2016. 3. No abdominal adenopathy or free fluid. 4. Other incidental findings include tiny gallstones within an otherwise unremarkable gallbladder, absent spleen, benign left adrenal mass, findings suggestive of chronic stercoral colitis, osteopenia and multilevel degenerative changes in the spine.
--- NOTE | 2016-12-15 12:27 | CT SCAN REPORT ---
EXAMINATION: CT HEAD WITHOUT AND WITH CONTRAST CLINICAL INFORMATION: Primary lung cancer. Evaluate for metastatic disease. Generalized weakness. COMPARISON: Head CT dated 12/14/2015. TECHNIQUE: Contiguous axial imaging was performed from the skull base to vertex before and after the administration of 95 mL of Optiray 320 intravenous contrast. DLP: 994.18 mGy-cm FINDINGS: There is no evidence of acute intracranial hemorrhage or territorial infarction. No abnormal mass effect or midline shift is seen. Perez to white matter differentiation is well preserved. No extra-axial fluid collections are identified. There is a small high density 4.5 mm lesion in the periventricular white matter superolateral to the right lateral ventricle. No mass effect or significant surrounding edema is visible. This finding is not visible on the prior CT study from 12/14/2015. There is sclerotic wall thickening and mild to moderate fluid layering in the dependent left sphenoid sinus. The remaining paranasal sinuses are aerated. There is no hydrocephalus. Generalized parenchymal volume loss and mild small vessel ischemic changes are present in the cerebral white matter. The osseous structures and soft tissues are normal. The mastoid air cells are well aerated. IMPRESSION: Indeterminate 4.5 mm high density lesion in the periventricular white matter adjacent to the superolateral aspect of the right lateral ventricle. This lesion is high attenuation on the noncontrast study and does not appear to demonstrate enhancement; high density is suspected to be due to mineralization. This may be postinflammatory in etiology or alternatively represent a small cavernoma. A calcified solitary metastatic lesion is felt to be less likely. Otherwise, no enhancing parenchymal lesions identified. An MRI of the brain would be a more sensitive examination in order to assess for subtle intracranial metastases.
--- NOTE | 2016-12-18 13:52 | Discharge Summary ---
Visit Information Visit Dates Admission Date: 12/13/16 Discharge Date: 12/15/16 Hospital Course Course Attending Physician: MARIELA FUNEZ MD Primary Care Physician: BEBE MAYA,LANETTE Dos Santos Hospital Course: This is a 85-year-old lady with a past medical history of hypertension, dementia , idiopathic thrombocytopenia purpura status post splenectomy, is sent to [facility] ED by Dr. Lazaro for evaluation of increasing bilateral lower extremity edema and dark stool. Patient was admitted to general medical floor on 12/13/16 for evaluation, CT chest, abdomen and pelvis were obtained and revealed metastatic disease. -CT chest, abdomen and pelvis on 12/15/16 IMPRESSION: 1. Multiple large masses are seen in the liver and large left ovarian mass is seen. Findings are suspicious for metastatic disease in this patient with known history of primary lung cancer. 2. Reticular nodular opacities in the lung bases and left suprahilar mass are only partially included on this exam and are better evaluated on the recent CT scan of the chest from 12/13/2016. 3. No abdominal adenopathy or free fluid. 4. Other incidental findings include tiny gallstones within an otherwise unremarkable gallbladder, absent spleen, benign left adrenal mass, findings suggestive of chronic stercoral colitis, osteopenia and multilevel degenerative changes in the spine. -CT head 12/15/16 IMPRESSION: Indeterminate 4.5 mm high density lesion in the periventricular white matter adjacent to the superolateral aspect of the right lateral ventricle. This lesion is high attenuation on the noncontrast study and does not appear to demonstrate enhancement; high density is suspected to be due to mineralization. This may be postinflammatory in etiology or alternatively represent a small cavernoma. A calcified solitary metastatic lesion is felt to be less likely. Otherwise, no enhancing parenchymal lesions identified. An MRI of the brain would be a more sensitive examination in order to assess for subtle intracranial metastases. -CT chest 12/13/16 IMPRESSION: 1. A large left suprahilar mass with associated invasion of the mediastinum. This mass, which measures approximately 5.9 x 6.7 x 5.8 cm in transverse, AP and craniocaudal dimensions respectively, exerts local mass effect upon the adjacent vasculature, notably the main pulmonary artery as well as the left pulmonary artery, without significant narrowing of the caliber of these vessels. 2. Multiple nodular opacities along the periphery of the right upper and right lower lobes, visualized measuring up to 6 mm within the right lower lobe. There is a tubular structure within the right lower lobe which could reflect fluid versus soft tissue within a dilated bronchiole. These pulmonary nodules are indeterminate but could reflect metastasis to the contralateral lung. 3. Diffuse heterogeneity within the left hepatic lobe as well as the hepatic dome, with an ill-defined rounded lesion visualized within the hepatic dome measuring approximately 3.8 x 4.5 cm. This is suspicious for liver metastasis. A nonemergent multiphase contrast-enhanced CT or MRI of the abdomen may be obtained for further evaluation. 4. Diffuse thickening of the left adrenal gland. This finding is indeterminate. Left adrenal gland metastasis cannot be excluded. This can also be further evaluated on CT or MRI of the abdomen. Plan -Patient continued to be very confused with visual hallucination -Patient has difficulty swallowing, was keep nothing by mouth -Hospice evaluation was obtained per family request -Patient was transferred to hospice care Allergies: Coded Allergies: NO KNOWN ALLERGIES (10/29/12) Disposition Summary Disposition Principal Diagnosis: Metastatic disease Additional Diagnosis: Dementia Discharge Disposition: hospice - medical facilit Discharge Instructions General Discharge Information Code Status: Full Code Patient's Diet: Regular Patient's Activity: As tolerated Follow-Up Instructions/Appts: -3 follow-up with your primary care physician after discharge Copies To: BEBE MAYA,LANETTE Dos Santos Allergies: Coded Allergies: NO KNOWN ALLERGIES (10/29/12)
== END 2016-12-15 11:47 | disposition hospice, home (50) | DRG 436 ==
LOC: ENRESERVDT → ENRESERVTM → ERH 15:58 → 2NB 19:27 → ERHI 19:27 → 2NB 21:44
PROVIDERS: Internal Medicine; Physician Assistant Medical; ADMIT Internal Medicine
DX: C78.7 Secondary malignant neoplasm of liver and intrahepatic bile duct (principal); D69.3 Immune thrombocytopenic purpura; R64 Cachexia; C78.01 Secondary malignant neoplasm of right lung; Z51.5 Encounter for palliative care; C79.72 Secondary malignant neoplasm of left adrenal gland; F05 Delirium due to known physiological condition; G30.9 Alzheimer's disease, unspecified; I34.1 Nonrheumatic mitral (valve) prolapse; E87.1 Hypo-osmolality and hyponatremia; F02.80 Dementia in other diseases classified elsewhere, unspecified severity, without behavioral disturbance, psychotic disturbance, mood disturbance, and anxiety; I10 Essential (primary) hypertension; E78.5 Hyperlipidemia, unspecified; Z68.29 Body mass index [BMI] 29.0-29.9, adult; Z80.1 Family history of malignant neoplasm of trachea, bronchus and lung; E87.6 Hypokalemia; D72.829 Elevated white blood cell count, unspecified; Z85.118 Personal history of other malignant neoplasm of bronchus and lung
CPT/HCPCS: 2NBP; 2NBSP; 74178; 81003; 82436; 87040; 87086; 93005; 93010; J0131; J1650; J1940; J3490; J7042

== ENCOUNTER 2016-12-15 11:54 | Inpatient (IN) | payer OTHER ==
[~2016-12-15 11:54] MED LIST changes: +AMITIZA24 MC1 PO; +IRON325 M3 PO; +TOBRADEX EYE O3.5 GM OS; +[UNRECOGNIZED DRUG - SUPPLY] OS
--- NOTE | 2016-12-15 12:22 | History & Physical ---
General Information and HPI MD Statement: I have seen and personally examined REID MCCAIN and documented this H&P. History of Present Illness: This is a 85-year-old is a 85-year-old lady with a past medical history of hypertension, dementia, idiopathic thrombocytopenia purpura status post splenectomy, is sent to [facility] by Dr. Lazaro for evaluation of increasing bilateral lower extremity edema. At baseline, patient has dementia and appeared disoriented during examination, therefore most of the history was obtained from family members (sons and in laws ). Family members report that patient was recently started on furosemide 10 mg (about 2 weeks ago) for her lower extremity swelling, by report that the swelling has progressively worsened. Early in the morning today, patient was reported to have had an episode for bowel movement with dark black stools. Patient was just started iron supplementation about 3 days ago and is normally has a bowel movement every other day. Patient also intermittently complains of mild abdominal pain, but does not experience any nausea, vomiting or diarrhea. Family members also report that the patient has had a decreased oral intake in the past 2 months, experienced a weight loss of about 10 pounds in the past 2 months, and has been found to be more demented with nightmares and possibly hallucinations (feelings of people are going to break into her house). Patient is not reported to have had any recent fevers, cough, infection, sick contacts, chest pain or palpitation, shortness of breath, dizziness, focal call neurological deficit, muscle or joint pains, or dysuria[]. Patient was relatively emergency room upon admission he had a CAT scan had shown lung mass and possible hepatic metastasis. After multiple discussions with family members family decided to pursue hospice care. Allergies/Medications Allergies: Coded Allergies: NO KNOWN ALLERGIES (10/29/12) Home Med list Cholecalciferol (Vitamin D3) (Vitamin D3) 2,000 UNIT CAPSULE 1 CAP PO DAILY SUPPLEMENT (Reported) Cinacalcet HCl (Sensipar) 30 MG TABLET 1 TAB PO DAILY THYROID (Reported) Ferrous Sulfate (IRON) 325 MG (65 MG IRON) TABLET 1 TAB PO TID SUPPLEMENT ( Reported) Furosemide 20 MG TABLET 0.5 TAB PO DAILY DIURETIC (Reported) Hard Sample Cutter ([place] Simplus Solution) 105 ML SOLUTION 1 DROP OS BID LEFT EYE (Reported) Lubiprostone (Amitiza) 24 MCG CAPSULE 1 CAP PO BID CONSTIPATION (Reported) Rivastigmine (Exelon) 4.6 MG/24 HOUR PATCH.TD24 1 PAT TOP DAILY Dementia ( Reported) Tobramycin/Dexamethasone (Tobradex Eye Ointment) 0.3 %-0.1 % OINT...G. 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 Psychosocial History Services at Home: None Review of Systems Review of Systems Constitutional: Reports: see HPI, malaise, weakness, unexplained weight loss. All Other Systems: Reviewed and Negative Exam & Diagnostic Data Last 24 Hrs of Vital Signs/I&O Physical Exam General Appearance Alert, oriented to place. appears confused, cachetic Skin No Significant Lesion HEENT Atraumatic, PERRLA, EOMI Neck Supple, No JVD, No thryomegaly Lymphatic Cervical nl Cardiovascular Regular Rate, Normal S1, Normal S2 Lungs Clear to Auscultation, Normal Air Movement Abdomen Normal Bowel Sounds, Soft Neurological Normal Speech, Sensation Intact Extremities pitting edema b/l LE extremities Vascular Pulses Symmetrical Last 24 Hrs of Labs/[place]: Lab work was reviewed. Left yesterday show WBC count of 20.7,. Platelet 490 and hematocrit 33.2. Chemistry exam yesterday was within normal limits. CT abdomen and pelvis 1. Multiple large masses are seen in the liver and large left ovarian mass is seen. Findings are suspicious for metastatic disease in this patient with known history of primary lung cancer. 2. Reticular nodular opacities in the lung bases and left suprahilar mass are only partially included on this exam and are better evaluated on the recent CT scan of the chest from 12/13/2016. 3. No abdominal adenopathy or free fluid. 4. Other incidental findings include tiny gallstones within an otherwise unremarkable gallbladder, absent spleen, benign left adrenal mass, findings suggestive of chronic stercoral colitis, osteopenia and multilevel degenerative changes in the spine. CT chest 1. A large left suprahilar mass with associated invasion of the mediastinum. This mass, which measures approximately 5.9 x 6.7 x 5.8 cm in transverse, AP and craniocaudal dimensions respectively, exerts local mass effect upon the adjacent vasculature, notably the main pulmonary artery as well as the left pulmonary artery, without significant narrowing of the caliber of these vessels. 2. Multiple nodular opacities along the periphery of the right upper and right lower lobes, visualized measuring up to 6 mm within the right lower lobe. There is a tubular structure within the right lower lobe which could reflect fluid versus soft tissue within a dilated bronchiole. These pulmonary nodules are indeterminate but could reflect metastasis to the contralateral lung. 3. Diffuse heterogeneity within the left hepatic lobe as well as the hepatic dome, with an ill-defined rounded lesion visualized within the hepatic dome measuring approximately 3.8 x 4.5 cm. This is suspicious for liver metastasis. A nonemergent multiphase contrast-enhanced CT or MRI of the abdomen may be obtained for further evaluation. 4. Diffuse thickening of the left adrenal gland. This finding is indeterminate. Left adrenal gland metastasis cannot be excluded. This can also be further evaluated on CT or MRI of the abdomen. Assessment/Plan Assessment: Assessment: This is a 85-year-old lady with a significant history of dementia, hypertension, MVP, is sent in by her primary care physician for evaluation of increased bilateral lower extremity edema and dark stool. Patient was recently started on furosemide 10 mg lower extremity edema which seems to be worsening despite current intervention. Her CAT scan shows lung mass with hepatic metastasis. 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 #Lower extremity edema Patient does not have history of CHF or chronic venous insufficiency which account for the edema. The bilateral extremity edema possibly be from malignancy? #Leukocytosis Patient is afebrile, urinalysis is unremarkable for UTI, chest x-ray unremarkable for any acute infection, therefore leukocytosis is less likely to be of infectious etiology. #Hyponatremia (mild) Most likely hypovolemic hyponatremia. Will discontinue IV fluids #Hypokalemia Most likely this in the setting of furosemide use. Status post 10 mEq replenishment #Acute delirium Patient became confused with agitation at the ED and on general med floor with attempts to pull IV lines. Soft upper extremity restraint was instituted and patient received IM Zyprexa to milligram once due to severe agitation. Plan Will avoid any delirium triggers Will assess further need for upper extremity restraints Encouraged family members to stay with patient orientation Will avoid delirium triggers such as constipation (aggressive bowel regimen) Will use Ativan and morphine to keep patient comfortable #History of dementia As Ranked By This Provider Problem List: 1. Acute delirium 2. Leg edema 3. Leukocytosis 4. Lung mass As Ranked By This Provider Problem List: 1. Acute delirium Core Measures/Miscellaneous Acute Coronary Syndrome ACS Diagnosis: No Cerebrovascular Accident CVA/TIA Diagnosis: No Congestive Heart Failure CHF Diagnosis: No Venous Thromboembolism VTE Risk Factors: Acute medical illness (hospice admission) [facility] prophylaxis d/t: VTE low risk (hospice admission) No VTE Pharm Prophylaxis d/t: VTE low risk VTE Diagnosis: No VTE Type: NONE VTE Confirmed by (Test): NONE Severe Sepsis Severe Sepsis Present: No Septic Shock Septic Shock Present: No Miscellaneous Documentation Attending Case Discussed With: JORDIN MAYA,CARROL Primary Care Physician: LANETTE SPENCE MD Patient sees these Specialists NA Level of Patient Care: Hospice Attending MD Review Statement Attending Statement Attending MD Statement: examined this patient, discussed with family, reviewed EMR data (avail), discussed with nursing, discussed with case mgmt, reviewed images
[2016-12-16 07:07] VITALS: BP 100/60
--- NOTE | 2016-12-16 14:59 | PN- Hospice ---
Subjective Subjective: Per nursing, pt was moaning on repositioning earlier. Received morphine x 1 today and appears more comfortable. Nonverbal currently. Objective Last 24 Hrs of Vital Signs/I&O Vital Signs Date Time Temp Pulse Resp B/P Pulse O2 O2 Flow FiO2 Ox Delivery Rate 12/16 0707 98.0 96 12 100/60 92 Room Air Intake & Output 12/16 1600 12/16 0800 12/16 0000 Intake Total 30 10 Output Total 125 300 Balance -95 -290 Intake, IV 30 10 Output, Urine 125 300 Physical Exam General Appearance: no apparent distress, awakens briefly on repositioning Head: atraumatic, normal appearance Respiratory: min tracheal congestion, shallow respirations, nonlabored Cardiovascular: regular rate/rhythm Extremities: mild b/l LE edema Other Physical Findings: hardy with small amount danya urine Assessment/Plan Assessment/Recommendations: This is a 85-year-old lady with a significant history of dementia, hypertension, MVP, is sent in by her primary care physician for evaluation of increased bilateral lower extremity edema and dark stool. Patient was recently started on furosemide 10 mg lower extremity edema which seems to be worsening despite current intervention. Her CAT scan shows lung mass with left lobe hepatic mass, most likely metastasis. Continue with supportive care. Change morphine to every 1hr as needed--if pt needing morphine more often than that, needs scheduled dosing and/or drip. Problem List: 1. Lung mass 2. Liver mass, left lobe 3. Dementia
[2016-12-17 06:54] VITALS: BP 96/58
[2016-12-18 07:18] VITALS: BP 92/50
--- NOTE | 2016-12-18 13:54 | PN- Hospice ---
Subjective Subjective: Son at bedside. Pt is unresponsive, appears comfortable now. Pt has required morphine x 6 and ativan x 4 past 24 hours for pain/dyspnea and anxiety. Yesterday scopolamine was increased to 3 patches for congestion. Review of Systems Constitutional: Reports: see HPI. Objective Last 24 Hrs of Vital Signs/I&O Vital Signs Date Time Temp Pulse Resp B/P Pulse O2 O2 Flow FiO2 Ox Delivery Rate 12/18 0718 96.8 64 20 92/50 87 Room Air Intake & Output 12/18 1600 12/18 0800 12/18 0000 Intake Total 0 Output Total 0 Balance 0 Intake, IV 0 Intake, Oral 0 Number 0 Bowel Movements Output, Urine 0 Physical Exam General Appearance: no apparent distress, comfortable Respiratory: no respiratory distress, quiet respiration Cardiovascular: tachycardia Extremities: no edema, no mottling Neurologic/Psychiatric: unresponsive Other Physical Findings: hardy with minimal danya urine output Assessment/Plan Assessment/Recommendations: This is a 85-year-old lady with a significant history of dementia, hypertension, MVP, is sent in by her primary care physician for evaluation of increased bilateral lower extremity edema and dark stool. Patient was recently started on furosemide 10 mg lower extremity edema which seems to be worsening despite current intervention. Her CAT scan shows lung mass with left lobe hepatic mass, most likely metastasis. Continue with supportive care, pt appears comfortable. Support provided to family. Morphine scheduled 2mg IV every 4 hrs and every 1 hr as needed. Problem List: 1. Lung mass 2. Liver mass, left lobe 3. Dementia
--- NOTE | 2016-12-25 16:33 | Discharge Summary ---
Visit Information Visit Dates Admission Date: 12/15/16 Discharge Date: 12/19/16 Hospital Course Course Attending Physician: JORDIN MAYA,CARROL Primary Care Physician: LANETTE SPENCE MD Hospital Course: This is a 85-year-old lady with a significant history of dementia, hypertension, MVP, is sent in by her primary care physician for evaluation of increased bilateral lower extremity edema and dark stool. Patient was recently started on furosemide 10 mg lower extremity edema which seems to be worsening despite current intervention. Her CAT scan shows lung mass with hepatic metastasis and she is delirious. She was placed on hospice level of care and was kept comfortable until she . Allergies: Coded Allergies: NO KNOWN ALLERGIES (10/29/12) Disposition Summary Disposition Principal Diagnosis: Lung mass Liver Mass Additional Diagnosis: dementia Discharge Disposition: Discharge Instructions General Discharge Information Code Status: Hospice Patient's Diet: N/A Patient's Activity: N/A Follow-Up Instructions/Appts: N/A Copies To: LANETTE SPENCE MD
== END 2016-12-19 05:43 | disposition expired | DRG 181 ==
LOC: 2NA 11:54
PROVIDERS: ADMIT Hospitalist
DX: C34.90 Malignant neoplasm of unspecified part of unspecified bronchus or lung (principal); C79.9 Secondary malignant neoplasm of unspecified site; R60.0 Localized edema; R41.0 Disorientation, unspecified; Z51.5 Encounter for palliative care
CPT/HCPCS: 2NAP